=== PATIENT | male | born 1980 | race Two or more races ===

== ENCOUNTER 2017-03-27 14:20 | Emergency (ER) | payer SELFPAY ==
[2017-03-27 14:27] VITALS: TEMP 98.2; BMI 25.0
--- NOTE | 2017-03-27 14:52 | PDOC ---
Attending Attestation - HPI HPI: 03/27/17 15:45 36 year old male, with no significant past medical history, who presents to the emergency room complaining of 3-4 days of LLQ abdominal pain that radiates to the left testicle. - Physicial Exam PE: 03/27/17 15:45 Vitals: Triage Vital signs reviewed General Appearance: no acute distress, well nourished well developed Head: Atraumatic Eyes: Pupils equal reactive round, extraocular movement intact Cardiac: Regular rate and rhythym, no murmurs, no rubs, no gallops Abdomen: Soft, non distended, normal bowel sounds, non tender to palpation Genitourinary: tender, elevated, slightly swollen left testicle, +cremasteric reflex Extremities: Full range of motion to all extremities, no cyanosis, clubbing, or edema Skin: Warm and dry, no rashes or lesions, no rash, no petechiae Psych: Normal mood, normal affect <Keren Ley - Last Filed: 03/27/17 15:45> - ED Attending Attestation I have performed the following: I have examined & evaluated the patient, The case was reviewed & discussed with the resident, I agree w/resident's findings & plan, Exceptions are as noted - Medical Decision Making 03/27/17 19:14 Ultrasound demonstrates epididymitis. Patient well-appearing no apparent distress. Patient treated prophylactically for STD will follow-up with urology Findings, the need for follow-up and strict return instructions discussed with patient. <Margarito Rodríguez - Last Filed: 03/27/17 19:15>
[2017-03-27] MEDS ORDERED: AZITHROMYCIN 1 GM PACKET PO ONE (16:07)
[2017-03-27] MEDS ORDERED: AZITHROMYCIN 250 MG TABLET ONE (16:17)
[2017-03-27 16:52] LABS: URINE APPEARANCE SLCLOUDY; URINE BILIRUBIN NEGATIVE (NEGATIVE); URINE BLOOD 1+ (NEGATIVE); URINE COLOR DKYELLOW; URINE GLUCOSE (UA) NEGATIVE (NEGATIVE); URINE KETONE NEGATIVE (NEGATIVE); URINE NITRITE NEGATIVE (NEGATIVE)
[2017-03-27 16:55] LABS: URINE PROTEIN 1+ (NEGATIVE)
[2017-03-27 16:56] LABS: URINE MUCUS RARE; URINE RBC 14; URINE WBC 45
[2017-03-27] MEDS ORDERED: LIDOCAINE HCL 1%, 10 MG/ML (20ML VIAL) ONE (17:02)
--- NOTE | 2017-03-27 17:27 | PDOC ---
History of Present Illness - General Chief Complaint: Edema Stated Complaint: ABD PAIN Time Seen by Provider: 03/27/17 14:30 History Source: Patient - History of Present Illness Initial Comments: 03/27/17 17:28 36M with no pmh presents with testicular pain and swelling for the past 3-4 days. No urinary pain or dysuria. No recent trauma. Pain has been steady but slightly decreasing with time. Past History - Past Medical History Allergies/Adverse Reactions: Allergies Allergy/AdvReac Type Severity Reaction Status Date / Time No Known Allergies Allergy Verified 03/27/17 14:24 Home Medications: Ambulatory Orders Amoxicillin - [Amoxicillin 500mg Capsule -] 500 mg PO TID #29 capsule 06/30/13 Ibuprofen 400 mg PO Q6H PRN #18 tablet 06/30/13 COPD: No - Suicide/Smoking/Psychosocial Hx Smoking History: Never smoked Have you smoked in the past 12 months: No Hx Alcohol Use: No Drug/Substance Use Hx: No Substance Use Type: None Review of Systems - Review of Systems Able to Perform ROS?: Yes Constitutional: No: Symptoms Reported HEENTM: No: Symptoms Reported Respiratory: No: Symptoms reported Cardiac (ROS): No: Symptoms Reported ABD/GI: No: Symptoms Reported : Yes: See HPI Musculoskeletal: No: Symptoms Reported Integumentary: No: Symptoms Reported Neurological: No: Symptoms reported *Physical Exam - Vital Signs Last Vital Signs Temp Pulse Resp BP Pulse Ox 98.2 F 61 18 129/63 99 03/27/17 14:23 03/27/17 14:23 03/27/17 14:23 03/27/17 14:23 03/27/17 14:23 - Physical Exam General Appearance: Yes: Nourished, Appropriately Dressed, Moderate Distress HEENT: positive: EOMI, DHARMESH, Normal ENT Inspection Neck: negative: Tender Respiratory/Chest: positive: Lungs Clear, Normal Breath Sounds. negative: Chest Tender Cardiovascular: positive: Regular Rhythm, Regular Rate, S1, S2 Gastrointestinal/Abdominal: positive: Normal Bowel Sounds, Flat, Soft. negative : Tender Male Genitalia: positive: testicular tenderness, epididymus tender. negative: discharge Neurologic: positive: Fully Oriented, Alert, Normal Mood/Affect ED Treatment Course - ADDITIONAL ORDERS Additional order review: Laboratory Results 03/27/17 15:48 Urine Color Dkyellow Urine Appearance Slcloudy Urine pH 5.0 Ur Specific Norden 1.035 Urine Protein 1+ H Urine Glucose (UA) Negative Urine Ketones Negative Urine Blood 1+ H Urine Nitrite Negative Urine Bilirubin Negative Urine Urobilinogen 2.0 Urine WBC (Auto) 45 Urine RBC (Auto) 14 Urine Mucus Rare - RADIOLOGY Radiology Studies Ordered: Category Date Time Status SCROTUM AND CONTENTS US [US] Stat Ultrasound 03/27/17 14:33 Completed - Medications Given in the ED: ED Medications Discontinued Medications Generic Name Dose Route Start Last Admin Trade Name Tari PRN Reason Stop Dose Admin Azithromycin 1 gm 03/27/17 16:07 03/27/17 16:24 Zithromax - PO 03/27/17 16:08 1 gm ONCE ONE Administration Ceftriaxone Sodium 250 mg 03/27/17 16:07 03/27/17 17:00 Rocephin - IM 03/27/17 16:08 250 mg ONCE ONE Administration Medical Decision Making - Medical Decision Making 03/27/17 17:32 36M with testicular pain and swelling for the past 3-4 days. Ordered US to r/o torsion urgently. Positive for epididimitis. Started the patient on ceftriaxone and azythromycin D/C with referal to Dr. Murcia. *DC/Admit/Observation/Transfer Diagnosis at time of Disposition: Acute epididymitis - Discharge Dispostion Disposition: HOME Admit: No - Referrals Referrals: Kaleb Murcia MD [Staff Physician] - - Patient Instructions Additional Instructions: Follow up with Urologist Dr. Murcia if symptoms comes back Come back to Emergency Room if you have new, worsening or worrying symptoms - Post Discharge Activity
[2017-03-27 17:37] LABS: HIV 1 & 2 AB NEGATIVE; HIV 1 AGp24 NEGATIVE
[2017-03-27 17:47] VITALS: BP 124/74; PULSE 78
[2017-03-27 21:50] LABS: URINE LEUK ESTERASE Negative (NEGATIVE)
== END 2017-03-27 17:45 | disposition home or self-care (01) ==
LOC: JER 14:20
DX: N50.89 Other specified disorders of the male genital organs (principal); N45.1 Epididymitis
CPT/HCPCS: 36415; 76870-TC; 81003; 81015; 87086; 87389; 99283-25